=== PATIENT | male | born 1940 | race Caucasian/White ===

== ENCOUNTER 2017-10-10 11:40 | Emergency (ER) | payer MEDICARE, OTHER ==
--- NOTE | 2017-10-10 12:14 | CT ---
CT OF THE BRAIN WITHOUT CONTRAST: Date: 10/10/17 HISTORY: Patient hit head on mailbox and complains of neck pain and head pain. TECHNIQUE: Multiple contiguous axial images were obtained in a CT of the brain without contrast. FINDINGS: There are scattered hypodensities and subcortical and periventricular white matter, likely secondary to small vessel ischemic disease. No large confluent infarction is seen. There is no evidence of hydr ocephalus, intracranial hemorrhage, or extra-axial fluid collections. A mucus retention cyst is seen in the left maxillary sinus. The calvarium and overlying soft tissues are unremarkable. IMPRESSION: 1. No evidence of acute intracranial abnormality. 2. Small vessel ischemic disease. POS: [facility]
--- NOTE | 2017-10-10 12:25 | CT ---
CT CERVICAL SPINE WITHOUT CONTRAST: HISTORY: Fell and hit head on mailbox with neck pain. COMPARISON: None. TECHNIQUE: Multiple contiguous axial images were obtained in a CT of the cervical spine without contrast. FINDINGS: There are severe degenerative changes in the cervical spine with multiple anterior bridging osteophyt es. The vertebral bodies demonstrate normal height without evidence of acute fracture or subluxation . No prevertebral soft tissue swelling is seen. The posterior facets are well aligned. Normal alignment of the skull base with the cervical spine is seen. IMPRESSION: Degenerative changes of the cervical spine without acute osseous abnormality. POS: [facility]
[2017-10-10] MEDS ORDERED: Lidocaine 1% w/Epinephrine 1:100K 20 ML VIAL ONE (14:21)
[2017-10-10] MEDS ORDERED: Bacitracin Zinc 1 Packet ONE (15:12)
== END 2017-10-10 15:17 | disposition home or self-care (01) ==
LOC: ERS 11:40
DX: S01.01XA Laceration without foreign body of scalp, initial encounter (principal); I10 Essential (primary) hypertension; Z79.899 Other long term (current) drug therapy; W18.30XA Fall on same level, unspecified, initial encounter
CPT/HCPCS: 12002; 70450; 72125; J2001

== ENCOUNTER 2018-01-15 13:28 | Outpatient (CLI) | payer MEDICARE, OTHER ==
--- NOTE | 2018-01-16 13:10 | ULT ---
ARTERIAL DOPPLER EXAMINATION: Date: 01/15/18 On the right, femoral waveforms are moderately abnormal with slightly broad based biphasic waveform. Popliteal, posterior tibial, and dorsalis pedis waveforms are moderately abnormal with depressed peak s. On the left, femoral, popliteal, posterior tibial, and dorsalis pedis waveforms are all triphasic wit h no abnormal waveform. Ankle brachial index on the right is 1.33. Ankle brachial index on the left is 1.48. ASSESSMENT: Moderate abnormality of the waveform of the right leg with normal waveforms and UGO on the left leg.
== END 2018-01-15 13:29 | disposition home or self-care (01) ==
LOC: ULT 13:28
PROVIDERS: ATTEND Family Medicine
DX: I70.209 Unspecified atherosclerosis of native arteries of extremities, unspecified extremity (principal)
CPT/HCPCS: 93922

== ENCOUNTER 2019-05-22 10:55 | Outpatient (CLI) | payer MEDICARE, OTHER ==
--- NOTE | 2019-05-22 12:23 | ULT ---
RIGHT UPPER QUADRANT ULTRASOUND: Date: 05/22/19 INDICATION: Right upper quadrant pain. FINDINGS: There is increased echogenicity of the liver, Gallbladder reveals no acute pathology. Common duct is normal at 3 mm. No ascites. Matthews's sign reported as negative. IMPRESSION: 1. Increased echogenicity of the hepatic parenchyma which can be seen in the setting of fatty infilt ration. Correlate with liver function enzymes. 2. No acute gallbladder pathology is identified. POS: [facility]
== END 2019-05-22 10:56 | disposition home or self-care (01) ==
LOC: SCSULT 10:55
PROVIDERS: ATTEND Surgery
DX: L02.211 Cutaneous abscess of abdominal wall (principal)
CPT/HCPCS: 76705

== ENCOUNTER 2020-07-25 14:23 | Outpatient (CLI) | payer MEDICARE, OTHER ==
[~2020-07-25 14:23] MED LIST: Iopamidol-370 76% 500 ML 1 ML ONE
--- NOTE | 2020-07-25 15:15 | CT ---
CT OF THE ABDOMEN AND PELVIS WITH IV CONTRAST INDICATION: History of abdominal pain COMPARISON: CT of the thorax dated December 16, 2003 FINDINGS: ABDOMEN: Lung bases: There is a stable pleural-based 1.1 cm noncalcified pulmonary nodule within the lateral l eft lower lobe. Liver: Diffuse fatty liver Gallbladder: Normal appearing. Pancreas: Normal. Adrenal glands: Normal. Spleen: Normal. Kidneys and ureters: Normal. No hydronephrosis. Vasculature: There are moderate vascular calcifications seen involving the visualized vasculature. Lymph nodes:No lymphadenopathy. Free fluid in abdomen:No free fluid is evident. PELVIS: Small and large bowel: There is a mild amount retained stool within the colon. Small bowel is of norm al caliber. Appendix:Normal Bladder: Normal. Rectal and perirectal soft tissues:Normal. Reproductive structures: Prostate is mildly enlarged measuring 4.9 cm. Free fluid in pelvis: No free fluid is evident. Lymphadenopathy pelvis: No lymphadenopathy is evident. Osseous structures: No acute osseous abnormality. No destructive osteolytic or osteoblastic lesion i s identified. There is scattered degenerative and osteoarthritic changes. Soft tissues:Fat-containing umbilicus hernia. IMPRESSION: 1. No definite CT explanation for the patient's abdominal pain. 2. Mild amount retained stool within colon. Recommend correlation for constipation. 3. Diffuse fatty liver. 4. Prostate enlargement. 5. Benign left lower lobe pulmonary nodule.
== END 2020-07-25 14:24 | disposition home or self-care (01) ==
LOC: BICCT 14:23
PROVIDERS: ATTEND Internal Medicine
DX: R10.32 Left lower quadrant pain (principal); R10.11 Right upper quadrant pain; K76.0 Fatty (change of) liver, not elsewhere classified; N40.0 Benign prostatic hyperplasia without lower urinary tract symptoms; R91.1 Solitary pulmonary nodule; K59.00 Constipation, unspecified
CPT/HCPCS: 74177; 82565; Q9967

== ENCOUNTER 2021-07-24 07:35 | Outpatient (CLI) | payer MEDICARE, OTHER | END 2021-07-24 07:36 | disposition home or self-care (01) | LOC: BICULT 07:35 | PROVIDERS: ATTEND Physician Assistant Medical | DX: K59.00 Constipation, unspecified (principal); R10.11 Right upper quadrant pain; K76.0 Fatty (change of) liver, not elsewhere classified | CPT/HCPCS: 76705 ==

== ENCOUNTER 2022-04-10 08:20 | Outpatient (CLI) | payer MEDICARE, OTHER ==
[2022-04-10] MEDS ORDERED: Magnevist 469MG/ML 20 ML VIAL ONE (11:56)
== END 2022-04-10 08:21 | disposition home or self-care (01) ==
LOC: TBSIIMAG 08:20
PROVIDERS: ATTEND Neurological Surgery
DX: M47.26 Other spondylosis with radiculopathy, lumbar region (principal); M48.061 Spinal stenosis, lumbar region without neurogenic claudication; M48.07 Spinal stenosis, lumbosacral region
CPT/HCPCS: 72158; 82565; A9579

== ENCOUNTER 2022-04-25 11:20 | Outpatient (CLI) | payer MEDICARE ==
[2022-04-25 12:32] LABS: Hemoglobin 13.2 g/dL (13.5-17.5); Mean Corpuscular HGB CONC 36.4 g/dL (32.0-36.0); Mean Corpuscular Hemoglobin 32.1 pg (27.0-33.0); Mean Corpuscular Volume 88.3 fl (81.2-95.1); Mean Platelet Volume 10.9 fl (7.4-10.4); Platelet Count 285 10x3/uL (150-450); RBC Distribution Width 11.7 % (11.5-14.5); Red Blood Cell (RBC) Count 4.11 10x6/uL (4.32-5.72); White Blood Cell (WBC) Count 7.8 10x3/uL (3.5-10.5)
[2022-04-25 12:49] LABS: Anion Gap 13 mmol/L (10-20); BUN (Urea Nitrogen) 16 mg/dL (8.4-25.7); Calc. Creatinine Clearance 0 mL/min (70-130); Calcium 9.7 mg/dL (7.8-10.44); Carbon Dioxide 24 mmol/L (23-31); Chloride 99 mmol/L (98-107); Estimated GFR 84; Glucose 98 mg/dL (83-110); Potassium 4.9 mmol/L (3.5-5.1); Sodium 131 mmol/L (136-145)
== END 2022-04-25 11:21 | disposition home or self-care (01) ==
LOC: LABBT 11:20
PROVIDERS: ATTEND Neurological Surgery
DX: Z01.818 Encounter for other preprocedural examination (principal); M48.062 Spinal stenosis, lumbar region with neurogenic claudication; Z20.822 Contact with and (suspected) exposure to COVID-19
CPT/HCPCS: 80048; 85027; 87811; 93005; 93010

== ENCOUNTER 2022-04-30 08:13 | Observation (INO) | payer MEDICARE ==
[2022-04-26 09:50] VITALS: BMI 31.9
[2022-04-30] MEDS ORDERED: fentaNYL Citrate/PF 100 MCG/2 ML SYRINGE ONE (12:10)
[2022-04-30] MEDS ORDERED: Sodium Chloride 0.9% 100 ML ONE (12:19)
[2022-04-30] MEDS ORDERED: CEFAZOLIN 2 GM VIAL ONE (12:19)
[2022-04-30] MEDS ORDERED: Ondansetron PF 4 MG/2 ML Vial ONE (12:25)
[2022-04-30] MEDS ORDERED: PROPOFOL 200 MG/20 ML VIAL ONE (12:25)
[2022-04-30] MEDS ORDERED: Dexamethasone 20 MG/5 ML VIAL ONE (12:25)
[2022-04-30] MEDS ORDERED: ePHEDrine 50 MG/ML VIAL ONE (12:25)
[2022-04-30] MEDS ORDERED: Glycopyrrolate 0.2 MG/ML 5 ML SYRINGE ONE (12:25)
[2022-04-30] MEDS ORDERED: Rocuronium Bromide 10 MG/ML (10ML VIAL) ONE (12:25)
[2022-04-30] MEDS ORDERED: Phenylephrine 10 MG/ML VIAL ONE (12:25)
[2022-04-30] MEDS ORDERED: Neostigmine Methylsulfate 3 MG/3 ML SYRINGE ONE (12:25)
[2022-04-30] MEDS ORDERED: traMADol HCl 50 MG TAB PO PRN (13:50)
[2022-04-30] MEDS ORDERED: Fleet Enema 133 ML BOT PR PRN (13:50)
[2022-04-30] MEDS ORDERED: Cyclobenzaprine 10 MG TAB PO PRN (13:50)
[2022-04-30] MEDS ORDERED: diphenhydrAMINE 50 MG/ML VIAL IVP PRN (13:50)
[2022-04-30] MEDS ORDERED: Ondansetron PF 4 MG/2 ML Vial IVP PRN (13:50)
[2022-04-30] MEDS ORDERED: Promethazine 25 MG TAB PO PRN (13:50)
[2022-04-30] MEDS ORDERED: Acetaminophen 325 MG TAB PO PRN (13:50)
[2022-04-30] MEDS ORDERED: Acetaminophen/Codeine 30-300mg Tablet PO PRN ×2 (13:50)
[2022-04-30] MEDS ORDERED: Morphine 2 MG/ML VIAL SLOW IVP PRN (13:50)
[2022-04-30] MEDS ORDERED: Mag-Al 1200 mg/1200 mg/30 ML UDCUP PO PRN (13:50)
[2022-04-30] MEDS ORDERED: Ondansetron HCl/PF 4 MG/2 ML Vial IVP PRN (14:16)
[2022-04-30] MEDS ORDERED: Promethazine HCl 25 MG/ML VIAL IVPB PRN (14:16)
[2022-04-30] MEDS ORDERED: Promethazine HCl 25 MG/ML VIAL IM PRN (14:16)
[2022-04-30] MEDS ORDERED: Ketorolac Tromethamine 30 MG/ML VIAL ONE (14:20)
[2022-04-30] MEDS ORDERED: Fentanyl 100 MCG/2 ML VIAL ONE ×2 (14:21→15:11)
[2022-04-30] MEDS ORDERED: Ketorolac Tromethamine 30 MG/ML VIAL IVP SCH (14:30)
[2022-04-30] MEDS: Sodium Chloride 0.9% 1,000 ML IV SCH ×2 (19:58→23:17)
[2022-04-30] MEDS: CEFAZOLIN 2 GM in Sodium Chloride 0.9% 100 ML IVPB SCH (20:19)
[2022-05-01] MEDS: CEFAZOLIN 2 GM in Sodium Chloride 0.9% 100 ML IVPB SCH ×2 (04:35→15:34)
[2022-05-01] MEDS ORDERED: Tamsulosin HCl 0.4 MG CAP PO SCH (06:00)
[2022-05-01 08:11] VITALS: BP 144/60
[2022-05-01 08:38] VITALS: TEMP 97.8
[2022-05-01] MEDS ORDERED: Acetaminophen/Codeine 30-300mg Tablet PO PRN ×2 (08:57)
[2022-05-01] MEDS ORDERED: Amlodipine 5 MG TAB PO SCH (09:00)
[2022-05-01] MEDS ORDERED: Lisinopril 20 MG TAB PO SCH (09:00)
== END 2022-05-01 15:30 | disposition home or self-care (01) ==
LOC: SDC 08:13 → MSONC 13:50
PROVIDERS: ADMIT Neurological Surgery; ATTEND Neurological Surgery
PROC: 01NB0ZZ Release Lumbar Nerve, Open Approach (ICD-10-PCS; principal; 2022-04-30)
DX: M48.062 Spinal stenosis, lumbar region with neurogenic claudication (principal); M54.16 Radiculopathy, lumbar region; M19.90 Unspecified osteoarthritis, unspecified site; I10 Essential (primary) hypertension; Z87.891 Personal history of nicotine dependence; Z79.899 Other long term (current) drug therapy; Z98.890 Other specified postprocedural states
CPT/HCPCS: 63047; 63048 ×2; 76000; 86850; 86900; 86901; 97110; 97116; C1713; 36415; J0690; J1100; J1885; J2370; J2405; J2704; J3010; J3370; J3490

== ENCOUNTER 2023-04-30 13:35 | Outpatient (CLI) | payer MEDICARE | END 2023-04-30 13:36 | disposition home or self-care (01) | LOC: BICMAMMO 13:35 | PROVIDERS: ATTEND Nurse Practitioner Family | DX: N63.0 Unspecified lump in unspecified breast (principal); Z80.3 Family history of malignant neoplasm of breast | CPT/HCPCS: 77066; G0279 ==